=== PATIENT | female | born 1990 | race Caucasian/White ===

== ENCOUNTER 2017-10-16 13:10 | Emergency (ER) | payer SELFPAY | END 2017-10-16 14:15 | disposition home or self-care (01) | LOC: ERS 13:10 | DX: R05 Cough (principal); F32.9 Major depressive disorder, single episode, unspecified; F41.9 Anxiety disorder, unspecified; F90.9 Attention-deficit hyperactivity disorder, unspecified type; F17.200 Nicotine dependence, unspecified, uncomplicated | CPT/HCPCS: 99283 ==